=== PATIENT | male | born 2000 | race Two or more races ===

== ENCOUNTER 2023-10-02 22:37 | Emergency (ER) | payer SELFPAY ==
[2023-10-02 23:11] LABS: BASOPHILS ABSOLUTE AUTO 0.07 K/uL (0.00-0.20); BASOPHILS PERCENT AUTO 0.8 % (0.0-1.0); EOSINOPHILS ABSOLUTE AUTO 0.03 K/uL (0.00-0.45); EOSINOPHILS PERCENT AUTO 0.3 % (0.0-6.0); HEMATOCRIT 45.4 % (42.0-52.0); HEMOGLOBIN 15.7 g/dL (14.0-18.0); IMMATURE GRAN ABSOLUTE AUTO 0.01 K/uL (0.00-0.05); IMMATURE GRAN PERCENT AUTO 0.1 % (0.0-0.4); LYMPHOCYTES ABSOLUTE AUTO 2.17 K/uL (1.00-4.80); LYMPHOCYTES PERCENT AUTO 23.9 % (24.0-44.0); MEAN CORPUSCULAR HEMOGLOBIN 29.8 pg (28.0-32.0); MEAN CORPUSCULAR HGB CONC 34.6 g/dL (32.0-36.0); MEAN CORPUSCULAR VOLUME 86.3 fL (83.0-99.0); MEAN PLATELET VOLUME 8.9 fL (9.4-12.4); MONOCYTES ABSOLUTE AUTO 0.88 K/uL (0.00-0.80); MONOCYTES PERCENT AUTO 9.7 % (0.0-8.0); NEUTROPHILS ABSOLUTE AUTO 5.93 K/uL (1.80-7.70); NEUTROPHILS PERCENT AUTO 65.2 % (41.0-71.0); PLATELET COUNT,PLT 358 K/uL (150-400); RED BLOOD CELL COUNT 5.26 M/uL (4.52-5.90); WHITE BLOOD CELL COUNT,WBC 9.09 K/uL (3.9-11.3)
[2023-10-02 23:27] LABS: D-DIMER QUANTITATIVE 0.19 mg/L FEU (0.00-0.50); INR 1.12 (0.86-1.11); PTT,PARTIAL THROMBOPLSTIN TIME 28.5 SEC (23.9-30.7)
[2023-10-02 23:35] LABS: A/G RATIO 1.2 (0.9-1.6); ALBUMIN 4.5 g/dL (3.4-5.0); BILIRUBIN TOTAL 1.2 mg/dL (0.2-1.0); C-REACTIVE PROTEIN 1.76 mg/dL (<0.3); CALCIUM 9.4 mg/dL (8.5-10.1); CARBON DIOXIDE,CO2 27.5 mmol/L (21.0-32.0); CREATININE 1.1 mg/dL (0.8-1.3); EST CRCL DRUG DOSING (CG) 102.77 mL/min; POTASSIUM,K 4.1 mmol/L (3.5-5.1); PROTEIN TOTAL,TP 8.4 g/dL (6.4-8.2)
== END 2023-10-02 23:50 | disposition home or self-care (01) ==
LOC: MW.ED 22:37
DX: L03.116 Cellulitis of left lower limb (principal)
CPT/HCPCS: 36415; 73610-26-LT; 73610-LT; 80053; 85025; 85379; 85610; 85730; 86140; 99283